=== PATIENT | female | born 1965 | race Caucasian/White ===

== ENCOUNTER 2023-04-16 14:52 | Outpatient (CLI) | payer OTHER | END 2023-04-16 14:53 | disposition home or self-care (01) | LOC: RAD 14:52 | PROVIDERS: ATTEND Plastic Surgery Surgery of the Hand | DX: M54.2 Cervicalgia (principal); M47.812 Spondylosis without myelopathy or radiculopathy, cervical region | CPT/HCPCS: 72040 ==

== ENCOUNTER 2024-03-31 12:20 | Emergency (ER) | payer SELFPAY ==
[2024-03-31] MEDS ORDERED: Cyclobenzaprine 10 MG TAB ONE (14:44)
[2024-03-31] MEDS ORDERED: Ketorolac Tromethamine 30 MG (1 mL) VIAL ONE (14:44)
[2024-03-31] MEDS ORDERED: predniSONE 20 MG TAB ONE (14:45)
[2024-03-31] MEDS ORDERED: HYDROcodone/Acetaminophen 10/325 mg Tablet ONE (14:45)
== END 2024-03-31 15:38 | disposition home or self-care (01) ==
LOC: ERS 12:20
DX: M25.461 Effusion, right knee (principal); I87.8 Other specified disorders of veins; I10 Essential (primary) hypertension; Z79.899 Other long term (current) drug therapy
CPT/HCPCS: 96372; J1885; J7512

== ENCOUNTER 2024-09-04 13:30 | Outpatient (CLI) | payer OTHER | END 2024-09-04 13:31 | disposition home or self-care (01) | LOC: BICMAMMO 13:30 | PROVIDERS: ATTEND Specialist | DX: Z12.31 Encounter for screening mammogram for malignant neoplasm of breast (principal) | CPT/HCPCS: 77063; 77067 ==